=== PATIENT | male | born 1995 | race Caucasian/White ===

== ENCOUNTER 2020-04-26 23:26 | Emergency (ER) | payer OTHER ==
[~2020-04-26] VITALS: Ht 182.9 cm; Wt 92.0 kg
[2020-04-27] MEDS ORDERED: LIDOCAINE/EPI/TETRACAINE TOPICAL GEL 3 ML. TP ONE (01:30)
[2020-04-27] MEDS ORDERED: TRANEXAMIC ACID 1,000 MG/10 ML VIAL. ONE (02:01)
[2020-04-27] MEDS ORDERED: DIPH,PERTUSS(ACELL),TET VAC/PF 0.5 ML SYRINGE. VAX IM ONE (02:30)
[2020-04-27] MEDS ORDERED: CEPH500C PO (02:35)
--- NOTE | 2020-04-27 02:36 | PHYS DOC ---
Adult General Chief Complaint Chief Complaint: LACERATION/AVULSION HPI HPI Patient is a 25-year-old male, who presents with [facility] guards from the [facility] for self-harm. Patient cut his wrists with a razor blade in an attempt to commit suicide. Denies any other injuries. Denies any homicidal ideation or hallucinations. States he does get angry, does not like presenting cut himself. Does not know if he is up-to-date on his tetanus vaccinations. Review of Systems Review of Systems Review of systems otherwise unremarkable except noted in HPI Current Medications Current Medications Current Medications Medications (Trade) Dose Ordered Sig/Ivan Start Time Stop Time Status Last Admin Dose Admin Diphtheria/ Pertussis/Tetanus Vacc (ADACEL TDap SYRINGE) 0.5 ml ONCE ONCE 04/27/20 02:30 04/27/20 02:31 Lidocaine/ Epinephrine (Let (Fdmz-Snlzdtz-Cuppb) Gel) 6 ml 1X ONCE 04/27/20 01:30 04/27/20 01:31 DC 04/27/20 01:15 6 ML Tranexamic Acid (Cyklokapron) 1,000 mg STK-MED ONCE 04/27/20 02:01 04/27/20 02:01 DC Allergies Allergies Allergies Coded Allergies Type Severity Reaction Last Updated Verified No Known Drug Allergies 04/27/20 No Physical Exam Physical Exam Constitutional: Well developed, well nourished, no acute distress, non-toxic appearance. [] HENT: Normocephalic, atraumatic, bilateral external ears normal, oropharynx moist, no oral exudates, nose normal. [] Eyes: conjunctiva normal, no discharge. [] Neck: Normal range of motion, no tenderness, supple, no stridor. [] Cardiovascular:Heart rate regular rhythm, no murmur [] Lungs & Thorax: Bilateral breath sounds clear to auscultation [] Abdomen: soft, no tenderness, no masses, no pulsatile masses. [] Skin: Warm, dry, no erythema, no rash. [] Back: No tenderness, Extremities: Patient has an approximately 6 cm laceration running from the wrist proximally essentially linear. Range of motion intact. Neuromuscular exam intact. Neurologic: Alert and oriented X 3, normal motor function, normal sensory function, no focal deficits noted. [] Psychologic: Affect normal, judgement normal, mood normal. [] EKG EKG [] Radiology/Procedures Radiology/Procedures Wound is approximately 6 cm long with an adjacent wound approximately 2 cm long. Area cleaned with sterile water. L ET placed for local anesthesia and TXA for hemostasis. Anesthesia and hemostasis achieved. Nine 4-0 nylon sutures placed in the long laceration and 3 in the short laceration. Wound cleaned again. Wound bandaged. Patient tolerated procedure well. [] Heart Score Risk Factors: Risk Factors: DM, Current or recent (<one month) smoker, HTN, HLP, family history of CAD, obesity. Risk Scores: Risk Factors: DM, Current or recent (<one month) smoker, HTN, HLP, family history of CAD, obesity. Course & Med Decision Making Course & Med Decision Making Patient is a 25-year-old male who presents with a laceration to the wrist in an attempt at self-harm/suicide. Vital signs not concerning. Physical exam noted above. Wound cleaned. L ET placed for topical anesthesia. TXA placed for hemostasis. Anesthesia and hemostasis achieved. Sutured wound successfully. Patient had a second smaller laceration about 2 cm just next to the other laceration that was also sutured successfully. Updated on tetanus vaccination. Started on antibiotics in the ED. Gave wound care instructions. Advised to follow-up with [facility] physician in 1 week for wound check and suture removal. Gave strict return precautions to the ED. Patient ate and drank in the ED wit hout issue. Discussed patient's disposition with guards. After suture repair, patient medically cleared as he is alert and oriented, with normal vital signs, able to take p.o. in no acute distress. ED nurse called and talked to facility who stated they have a psychiatric facility there that they will admit him to on return to the [facility] for continued of psychiatric evaluation and treatment. Discussed everything with guards and patient, who verbalized understanding and agreed with plan of discharge. [] Dragon Disclaimer Dragon Disclaimer This electronic medical record was generated, in whole or in part, using a voice recognition dictation system. Departure Departure: Impression: Primary Impression: Suicidal ideation Additional Impression: Laceration Disposition: 05 DC/TRF OTHER TYPE INSTITUTI Condition: RELEASED IN CUSTODY Referrals: PCP,NO (PCP) Patient Instructions: Sutured Wound Care Additional Instructions: Please read all the attached information. Please keep the area clean, dry and bandaged. Please take your antibiotics as prescribed. You were updated on her tetanus. Please discuss your ED visit with your [facility] physician and need for wound check and suture removal in 7 days. Please come back to the ED with new or concerning symptoms as discussed. Scripts Cephalexin (CEPHALEXIN) 500 Mg Capsule 1 CAP PO TID for laceration for 7 Days, #21 CAP Prov: AIME MARTINEZ MD 04/27/20 Problem Qualifiers AIME MARTINEZ MD Apr 27, 2020 02:36
[2020-04-27] MEDS ORDERED: IBUPROFEN 800 MG TABLET. PO ONE (03:00)
[2020-04-27] MEDS ORDERED: ACETAMINOPHEN 500 MG TABLET PO ONE (03:00)
[2020-04-27] MEDS ORDERED: CEPHALEXIN 250 MG CAPSULE PO ONE (03:00)
== END 2020-04-27 03:15 | disposition short-term general hospital (02) ==
LOC: ER 23:26 → EEVIPCON 23:26 → EDBD 23:26 → ER 04-27 03:15
DX: S61.511A Laceration without foreign body of right wrist, initial encounter (principal); R45.851 Suicidal ideations; X78.8XXA Intentional self-harm by other sharp object, initial encounter; Y93.89 Activity, other specified; Y92.89 Other specified places as the place of occurrence of the external cause; Y99.8 Other external cause status
CPT/HCPCS: 12002; 90471; 90715; 99285

== ENCOUNTER → 2020-04-27 | Outpatient (CLI) | payer OTHER ==
[~2020-04-27] MED LIST: CEPH500C PO
[2020-04-27 19:17] LABS: BASO # 0.1 x10^3/uL (0.0-0.2); BASO % 1 % (0-3); EOS # 0.1 x10^3/uL (0.0-0.7); EOS % 1 % (0-3); HEMATOCRIT 43.2 % (39.0-53.0); HEMOGLOBIN 14.5 g/dL (13.0-17.5); LYMPH # 0.9 x10^3/uL (1.0-4.8); LYMPH % 17 % (24-48); MEAN CORPUSCULAR HEMOGLOBIN 30 pg (25-35); MEAN CORPUSCULAR HGB CONC 34 g/dL (31-37); MEAN CORPUSCULAR VOLUME 89 fL (79-100); MONO # 0.7 x10^3/uL (0.0-1.1); MONO % 13 % (0-9); NEUT # 3.6 x10^3uL (1.8-7.7); NEUT % 67 % (31-73); PLATELET COUNT 113 x10^3/uL (140-400); RED BLOOD COUNT 4.88 x10^6/uL (4.30-5.70); RED CELL DISTRIBUTION WIDTH 13.9 % (11.5-14.5); WHITE BLOOD COUNT 5.4 x10^3/uL (4.0-11.0)
== END ==
LOC: EEVIPCON 18:59 → LAB 18:59
PROVIDERS: ATTEND Emergency Medicine
DX: S61.511A Laceration without foreign body of right wrist, initial encounter (principal); X58.XXXA Exposure to other specified factors, initial encounter; Y92.89 Other specified places as the place of occurrence of the external cause; Y93.89 Activity, other specified; Y99.8 Other external cause status
CPT/HCPCS: 36415; 85025